=== PATIENT | female | born 1935 | race Caucasian/White ===

== ENCOUNTER 2017-09-06 05:46 | Inpatient (IN) | payer MEDICARE, BC ==
[2017-09-06 08:18] LABS: ADD MAN DIFF? NO
[2017-09-06 08:19] LABS: WHITE BLOOD COUNT 7.7 10^3/ul (4.8-10.8)
[2017-09-06 08:19] LABS: BASOPHILS % 0.4 % (0.0-2.0); EOSINOPHILS # 0.1 10^3/ul (0.0-0.5); EOSINOPHILS % 1.4 % (0.0-7.0); HEMATOCRIT 40.9 % (37.0-47.0); HEMOGLOBIN 13.8 g/dl (12.0-16.0); LYMPHOCYTES # 1.6 10^3/ul (0.8-2.9); LYMPHOCYTES % 21.1 % (15.0-51.0); MEAN CORPUSCULAR HEMOGLOBIN 32.6 pg (29.0-33.0); MEAN CORPUSCULAR HGB CONC 33.7 g/dl (32.0-37.0); MEAN CORPUSCULAR VOLUME 96.7 fl (82.0-101.0); MEAN PLATELET VOLUME 10.3 fl (7.4-10.4); MONOCYTE # 0.9 10^3/ul (0.3-0.9); MONOCYTES % 11.1 % (0.0-11.0); NEUTROPHIL # 5.1 10^3/ul (1.6-7.5); NEUTROPHILS % 65.7 % (39.0-77.0); PLATELET COUNT 201 10^3/UL (140-415); RED BLOOD COUNT 4.23 10^6/ul (4.20-5.40)
[2017-09-06] MEDS: SOD CHLORIDE 0.9% 1,000 ML IV ×3 (08:23→13:11)
[2017-09-06] MEDS: ONDANSETRON 4 MG INJ IV ×4 (08:23→21:30)
[2017-09-06] MEDS: morphine 4 MG/ML VIAL IV (08:24)
[2017-09-06 08:34] LABS: ADD UMIC YES; UR ASCORBIC ACID NEGATIVE (NEGATIVE); UR BILIRUBIN (Dip) NEGATIVE (NEGATIVE); UR BLOOD (Dip) NEGATIVE (NEGATIVE); UR CLARITY CLEAR (CLEAR); UR COLOR YELLOW (YELLOW); UR GLUCOSE (Dip) NEGATIVE (NEGATIVE); UR KETONES (Dip) NEGATIVE (NEGATIVE); UR LEUKOCYTE ESTERASE (Dip) 1+ Leu/ul (NEGATIVE); UR NITRITE (Dip) NEGATIVE (NEGATIVE); UR RBC 0 /HPF (0-5); UR SPECIFIC GRAVITY (Dip) 1.015 (1.003-1.030); UR TOTAL PROTEIN (Dip) NEGATIVE (NEGATIVE); UR UROBILINOGEN (Dip) NEGATIVE (NEGATIVE); UR WBC 12 /HPF (0-5)
[2017-09-06 08:38] LABS: ALANINE AMINOTRANSFERASE 69 IU/L (13-69); ALBUMIN 4.3 g/dl (3.3-4.9); ALBUMIN/GLOBULIN RATIO 1.38; ALKALINE PHOSPHATASE 76 IU/L (42-121); ANION GAP 13 (8-16); ASPARTATE AMINO TRANSFERASE 48 IU/L (15-46); BILIRUBIN,INDIRECT 0.5 mg/dl (0-1.1); BILIRUBIN,TOTAL 0.5 mg/dl (0.2-1.3); BLOOD UREA NITROGEN 14 mg/dl (7-20); CALCIUM 9.3 mg/dl (8.4-10.2); CARBON DIOXIDE 29 mmol/L (21-31); CHLORIDE 107 mmol/L (97-110); CREATININE 0.68 mg/dl (0.44-1.00); GLUCOSE 99 mg/dl (70-220); LIPASE 107 U/L (23-300); POTASSIUM 4.5 mmol/L (3.5-5.1); SODIUM 144 mmol/L (135-144); TOTAL PROTEIN 7.4 g/dl (6.1-8.1)
[2017-09-06 08:50] LABS: TROPONIN-I < 0.010 ng/ml (0.000-0.120)
[2017-09-06] MEDS: LEVOFLOXACIN 750MG/D5W (PMX) 150 ML IVPB (10:40)
[2017-09-06] MEDS: HYDROmorphONE 0.5 MG/0.5 ML SYG IV (11:29)
[2017-09-06] MEDS: metroNIDAZOLE 500 MG/NS (PMX) 100 ML IVPB ×2 (12:01→20:19)
[2017-09-06] MEDS ORDERED: BISACODYL 10 MG SUPP PR (13:30)
[2017-09-06] MEDS ORDERED: NACL 0.9% 3 ML SYG IV (13:30)
[2017-09-06] MEDS ORDERED: ACETAMINOPHEN 650 MG SUPP PR (13:30)
[2017-09-06] MEDS ORDERED: MAGNESIUM HYDROXIDE 30ML CUP PO (13:30)
[2017-09-06] MEDS ORDERED: HYDROCODONE/APAP (5/325) TAB PO (13:30)
[2017-09-06] MEDS ORDERED: ACETAMINOPHEN 325 MG TAB PO (13:30)
[2017-09-06] MEDS ORDERED: DOCUSATE SODIUM 100 MG CAP PO (13:30)
[2017-09-07] MEDS: SOD CHLORIDE 0.9% 1,000 ML IV ×2 (00:16→09:11)
[2017-09-07] MEDS: morphine 2 MG INJ IV (00:35)
[2017-09-07] MEDS: PANTOPRAZOLE 40 MG INJ IV (05:21)
[2017-09-07] MEDS: metroNIDAZOLE 500 MG/NS (PMX) 100 ML IVPB (05:22)
[2017-09-07 06:01] LABS: ADD MAN DIFF? NO
[2017-09-07 06:07] LABS: WHITE BLOOD COUNT 8.7 10^3/ul (4.8-10.8)
[2017-09-07 06:07] LABS: BASOPHILS % 0.2 % (0.0-2.0); HEMATOCRIT 36.5 % (37.0-47.0); HEMOGLOBIN 12.4 g/dl (12.0-16.0); LYMPHOCYTES # 1.5 10^3/ul (0.8-2.9); LYMPHOCYTES % 17.2 % (15.0-51.0); MEAN CORPUSCULAR HEMOGLOBIN 32.4 pg (29.0-33.0); MEAN CORPUSCULAR VOLUME 95.3 fl (82.0-101.0); MONOCYTE # 0.6 10^3/ul (0.3-0.9); MONOCYTES % 6.4 % (0.0-11.0); NEUTROPHIL # 6.6 10^3/ul (1.6-7.5); NEUTROPHILS % 75.9 % (39.0-77.0); PLATELET COUNT 193 10^3/UL (140-415); RED BLOOD COUNT 3.83 10^6/ul (4.20-5.40); RED CELL DISTRIBUTION WIDTH 12.8 % (11.5-14.5)
[2017-09-07 06:53] LABS: ALANINE AMINOTRANSFERASE 63 IU/L (13-69); ALBUMIN 3.5 g/dl (3.3-4.9); ALBUMIN/GLOBULIN RATIO 1.29; ALKALINE PHOSPHATASE 73 IU/L (42-121); ANION GAP 10 (8-16); ASPARTATE AMINO TRANSFERASE 34 IU/L (15-46); BILIRUBIN,INDIRECT 0.4 mg/dl (0-1.1); BILIRUBIN,TOTAL 0.4 mg/dl (0.2-1.3); BLOOD UREA NITROGEN 9 mg/dl (7-20); CALCIUM 8.9 mg/dl (8.4-10.2); CARBON DIOXIDE 23 mmol/L (21-31); CHLORIDE 110 mmol/L (97-110); CHOL/HDL RATIO 3.3 RATIO; CHOLESTEROL 133 mg/dl (100-200); CREATININE 0.64 mg/dl (0.44-1.00); GLUCOSE 113 mg/dl (70-220); HDL CHOLESTEROL 40 mg/dl (33-92); LDL CHOLESTEROL,CALCULATED 77 mg/dl; MAGNESIUM 1.8 mg/dl (1.7-2.5); PHOSPHORUS 3.4 mg/dl (2.5-4.9); SODIUM 139 mmol/L (135-144); TOTAL PROTEIN 6.2 g/dl (6.1-8.1); TRIGLYCERIDES 81 mg/dl (0-149)
[2017-09-07 07:11] LABS: T4 (THYROXINE) 7.9 ug/dl (5.5-11.0)
[2017-09-07 07:12] LABS: FREE THYROXINE INDEX (Calc) 2.32 ug/ml (0.65-3.89); T3 UPTAKE 29.4 % (23.5-40.5)
[2017-09-07 07:25] LABS: THYROID STIMULATING HORMONE 0.403 MIU/L (0.465-4.680)
[2017-09-07] MEDS: CIPROFLOXACIN 400MG/D5W 200 ML IVPB (09:55)
[2017-09-07] MEDS: DIPHENHYDRAMINE 25 MG CAP PO (12:45)
[2017-09-07] MEDS: metroNIDAZOLE 500 MG TAB PO ×2 (15:04→22:32)
[2017-09-07] MEDS: HYDROCODONE/APAP (5/325) TAB PO (15:05)
[2017-09-07] MEDS: CIPROFLOXACIN 500 MG TAB PO (18:27)
[2017-09-07] MEDS: DIPHENHYDRAMINE 50 MG CAP PO (18:27)
[2017-09-07] MEDS ORDERED: morphine LIQ (10 MG/5 ML) CUP PO (23:30)
[2017-09-08] MEDS: CIPROFLOXACIN 500 MG TAB PO (06:11)
[2017-09-08] MEDS: metroNIDAZOLE 500 MG TAB PO (06:11)
[2017-09-08 06:17] LABS: ADD MAN DIFF? NO
[2017-09-08 06:21] LABS: BASOPHILS % 0.7 % (0.0-2.0); EOSINOPHILS # 0.1 10^3/ul (0.0-0.5); EOSINOPHILS % 2.1 % (0.0-7.0); HEMATOCRIT 36.5 % (37.0-47.0); HEMOGLOBIN 12.5 g/dl (12.0-16.0); LYMPHOCYTES # 2.1 10^3/ul (0.8-2.9); LYMPHOCYTES % 34.9 % (15.0-51.0); MEAN CORPUSCULAR HEMOGLOBIN 32.9 pg (29.0-33.0); MEAN CORPUSCULAR HGB CONC 34.2 g/dl (32.0-37.0); MEAN CORPUSCULAR VOLUME 96.1 fl (82.0-101.0); MEAN PLATELET VOLUME 10.5 fl (7.4-10.4); MONOCYTE # 0.6 10^3/ul (0.3-0.9); MONOCYTES % 9.8 % (0.0-11.0); NEUTROPHIL # 3.2 10^3/ul (1.6-7.5); NEUTROPHILS % 52.2 % (39.0-77.0); PLATELET COUNT 200 10^3/UL (140-415)
[2017-09-08 06:21] LABS: WHITE BLOOD COUNT 6.1 10^3/ul (4.8-10.8)
[2017-09-08 06:45] LABS: ALANINE AMINOTRANSFERASE 59 IU/L (13-69); ALBUMIN 3.7 g/dl (3.3-4.9); ALBUMIN/GLOBULIN RATIO 1.27; ALKALINE PHOSPHATASE 65 IU/L (42-121); ANION GAP 8 (8-16); ASPARTATE AMINO TRANSFERASE 46 IU/L (15-46); BILIRUBIN,INDIRECT 0.4 mg/dl (0-1.1); BILIRUBIN,TOTAL 0.4 mg/dl (0.2-1.3); BLOOD UREA NITROGEN 15 mg/dl (7-20); CALCIUM 8.8 mg/dl (8.4-10.2); CARBON DIOXIDE 26 mmol/L (21-31); CHLORIDE 111 mmol/L (97-110); CREATININE 0.73 mg/dl (0.44-1.00); GLUCOSE 104 mg/dl (70-220); MAGNESIUM 2.1 mg/dl (1.7-2.5); PHOSPHORUS 2.6 mg/dl (2.5-4.9); POTASSIUM 3.9 mmol/L (3.5-5.1); SODIUM 141 mmol/L (135-144); TOTAL PROTEIN 6.6 g/dl (6.1-8.1)
[2017-09-08] MEDS: HYDROCODONE/APAP (5/325) TAB PO (11:21)
== END 2017-09-08 14:50 | disposition home or self-care (01) | DRG 392 ==
LOC: E/R 05:46 → MS2 10:50
DX: K57.32 Diverticulitis of large intestine without perforation or abscess without bleeding (principal); N39.0 Urinary tract infection, site not specified; N81.4 Uterovaginal prolapse, unspecified
CPT/HCPCS: 36415; 74176; 80053; 80061; 81001; 83036; 83690; 83735; 84100; 84436; 84443; 84479; 84484; 85025; 87040; 87086; 93005; 93306; 96361; 96374; 96375; 99285-25

== ENCOUNTER 2018-01-15 21:15 | Emergency (ER) | payer MEDICARE, BC ==
[2018-01-15] MEDS: ONDANSETRON 4 MG INJ IV (21:57)
[2018-01-15] MEDS: morphine 4 MG/ML VIAL IV (21:59)
[2018-01-15] MEDS: SOD CHLORIDE 0.9% 1,000 ML IV (22:00)
[2018-01-15 22:10] LABS: ADD UMIC YES; UR ASCORBIC ACID NEGATIVE (NEGATIVE); UR BILIRUBIN (Dip) NEGATIVE (NEGATIVE); UR BLOOD (Dip) NEGATIVE (NEGATIVE); UR CLARITY CLEAR (CLEAR); UR COLOR YELLOW (YELLOW); UR GLUCOSE (Dip) NEGATIVE (NEGATIVE); UR KETONES (Dip) NEGATIVE (NEGATIVE); UR LEUKOCYTE ESTERASE (Dip) 1+ Leu/ul (NEGATIVE); UR NITRITE (Dip) NEGATIVE (NEGATIVE); UR RBC 1 /HPF (0-5); UR SPECIFIC GRAVITY (Dip) 1.012 (1.003-1.030); UR SQUAMOUS EPITHELIAL CELL FEW /HPF (FEW); UR TOTAL PROTEIN (Dip) NEGATIVE (NEGATIVE); UR TRANSITIONAL EPI CELL FEW /HPF (NONE SEEN); UR UROBILINOGEN (Dip) NEGATIVE (NEGATIVE); UR WBC 6 /HPF (0-5)
[2018-01-15 22:12] LABS: ADD MAN DIFF? NO
[2018-01-15 22:13] LABS: ABNORMAL IP MESSAGE 1; BASOPHILS % 0.5 % (0.0-2.0); EOSINOPHILS # 0.1 10^3/ul (0.0-0.5); EOSINOPHILS % 2.4 % (0.0-7.0); HEMATOCRIT 42.9 % (37.0-47.0); HEMOGLOBIN 14.6 g/dl (12.0-16.0); LYMPHOCYTES # 0.4 10^3/ul (0.8-2.9); LYMPHOCYTES % 9.4 % (15.0-51.0); MEAN CORPUSCULAR HEMOGLOBIN 32.2 pg (29.0-33.0); MEAN CORPUSCULAR VOLUME 94.7 fl (82.0-101.0); MEAN PLATELET VOLUME 10.4 fl (7.4-10.4); MONOCYTE # 0.3 10^3/ul (0.3-0.9); MONOCYTES % 7.7 % (0.0-11.0); NEUTROPHIL # 3.3 10^3/ul (1.6-7.5); NEUTROPHILS % 79.5 % (39.0-77.0); PLATELET COUNT 141 10^3/UL (140-415); RED BLOOD COUNT 4.53 10^6/ul (4.20-5.40); RED CELL DISTRIBUTION WIDTH 13.2 % (11.5-14.5)
[2018-01-15 22:13] LABS: WHITE BLOOD COUNT 4.1 10^3/ul (4.8-10.8)
[2018-01-15 22:22] LABS: POSITIVE DIFF @See below
[2018-01-15 22:33] LABS: LACTIC ACID 1.3 mmol/L (0.5-2.0)
[2018-01-15 22:34] LABS: ALANINE AMINOTRANSFERASE 60 IU/L (13-69); ALBUMIN 4.2 g/dl (3.3-4.9); ALBUMIN/GLOBULIN RATIO 1.23; ALKALINE PHOSPHATASE 73 IU/L (42-121); AMYLASE 74 U/L (11-123); ANION GAP 11 (5-13); ASPARTATE AMINO TRANSFERASE 52 IU/L (15-46); BILIRUBIN,INDIRECT 0.8 mg/dl (0-1.1); BILIRUBIN,TOTAL 0.8 mg/dl (0.2-1.3); BLOOD UREA NITROGEN 17 mg/dl (7-20); CALCIUM 9.3 mg/dl (8.4-10.2); CARBON DIOXIDE 25 mmol/L (21-31); CHLORIDE 103 mmol/L (97-110); CREATININE 0.65 mg/dl (0.44-1.00); GLUCOSE 124 mg/dl (70-220); INR 0.93; LIPASE 101 U/L (23-300); POTASSIUM 4.3 mmol/L (3.5-5.1); PROTIME 12.6 Sec (11.9-14.9); SODIUM 139 mmol/L (135-144); TOTAL PROTEIN 7.6 g/dl (6.1-8.1)
[2018-01-15 22:35] LABS: PARTIAL THROMBOPLASTIN TIME 30.8 Sec (23.0-35.0)
[2018-01-15 22:45] LABS: TROPONIN-I < 0.012 ng/ml (0.000-0.120)
[2018-01-15] MEDS: CEFTRIAXONE 1 GM/50 ML (PMX) 50 ML IVPB (23:57)
[2018-01-15] MEDS: METHYLPREDNISOLONE 125 MG INJ IV (23:57)
[2018-01-16] MEDS ORDERED: DIPHENHYDRAMINE 50 MG INJ IV
[2018-01-16] MEDS: DIPHENHYDRAMINE 50 MG INJ IV (00:03)
[2018-01-16] MEDS: PANTOPRAZOLE 40 MG INJ IV (00:11)
[2018-01-16] MEDS: KETOROLAC 30 MG INJ IV (00:15)
== END 2018-01-16 01:24 | disposition home or self-care (01) ==
LOC: FTE 01-16 01:24
DX: N39.0 Urinary tract infection, site not specified (principal); J01.90 Acute sinusitis, unspecified; R10.9 Unspecified abdominal pain
CPT/HCPCS: 36415; 74176; 80053; 81001; 82150; 83605; 83690; 84484; 85025; 85610; 85730; 87040; 87086; 96374; 96375; 99285-25

== ENCOUNTER 2018-04-04 13:30 | Inpatient (IN) | payer MEDICARE, BC ==
[2018-04-04 14:23] LABS: ADD MAN DIFF? NO
[2018-04-04] MEDS: KETOROLAC 30 MG INJ IV (14:35)
[2018-04-04] MEDS: SODIUM CHLORIDE 0.9% 1L BAG IV* (14:35)
[2018-04-04 14:41] LABS: BASOPHILS % 0.2 % (0.0-2.0); HEMATOCRIT 42.4 % (37.0-47.0); HEMOGLOBIN 13.9 g/dl (12.0-16.0); LYMPHOCYTES # 0.8 10^3/ul (0.8-2.9); MEAN CORPUSCULAR HGB CONC 32.8 g/dl (32.0-37.0); MEAN CORPUSCULAR VOLUME 97.5 fl (82.0-101.0); MONOCYTE # 0.5 10^3/ul (0.3-0.9); MONOCYTES % 12.6 % (0.0-11.0); NEUTROPHIL # 2.8 10^3/ul (1.6-7.5); PLATELET COUNT 173 10^3/UL (140-415); RED BLOOD COUNT 4.35 10^6/ul (4.20-5.40); RED CELL DISTRIBUTION WIDTH 13.6 % (11.5-14.5)
[2018-04-04 14:41] LABS: WHITE BLOOD COUNT 4.2 10^3/ul (4.8-10.8)
[2018-04-04 14:58] LABS: ALANINE AMINOTRANSFERASE 59 IU/L (13-69); ALBUMIN 4.3 g/dl (3.3-4.9); ALKALINE PHOSPHATASE 67 IU/L (42-121); ANION GAP 11 (5-13); ASPARTATE AMINO TRANSFERASE 66 IU/L (15-46); BILIRUBIN,INDIRECT 0.2 mg/dl (0-1.1); BILIRUBIN,TOTAL 0.2 mg/dl (0.2-1.3); BLOOD UREA NITROGEN 13 mg/dl (7-20); CALCIUM 9.6 mg/dl (8.4-10.2); CARBON DIOXIDE 24 mmol/L (21-31); CHLORIDE 101 mmol/L (97-110); CREATININE 0.65 mg/dl (0.44-1.00); GLUCOSE 127 mg/dl (70-220); POTASSIUM 4.3 mmol/L (3.5-5.1); SODIUM 136 mmol/L (135-144); TOTAL PROTEIN 7.6 g/dl (6.1-8.1)
[2018-04-04 15:10] LABS: TROPONIN-I < 0.012 ng/ml (0.000-0.120)
[2018-04-04 15:16] LABS: INR 0.92; PROTIME 12.5 Sec (11.9-14.9)
[2018-04-04 15:17] LABS: PARTIAL THROMBOPLASTIN TIME 29.7 Sec (23.0-35.0)
[2018-04-04 15:54] LABS: ADD UMIC YES; UR ASCORBIC ACID NEGATIVE (NEGATIVE); UR BILIRUBIN (Dip) NEGATIVE (NEGATIVE); UR BLOOD (Dip) NEGATIVE (NEGATIVE); UR CLARITY CLEAR (CLEAR); UR COLOR STRAW (YELLOW); UR GLUCOSE (Dip) NEGATIVE (NEGATIVE); UR KETONES (Dip) NEGATIVE (NEGATIVE); UR LEUKOCYTE ESTERASE (Dip) TRACE Leu/ul (NEGATIVE); UR NITRITE (Dip) NEGATIVE (NEGATIVE); UR RBC 0 /HPF (0-5); UR SPECIFIC GRAVITY (Dip) 1.005 (1.003-1.030); UR TOTAL PROTEIN (Dip) NEGATIVE (NEGATIVE); UR UROBILINOGEN (Dip) NEGATIVE (NEGATIVE); UR WBC 1 /HPF (0-5)
[2018-04-04] MEDS: LEVOFLOXACIN 750MG/D5W (PMX) 150 ML IVPB (16:03)
[2018-04-04] MEDS: ALBUTEROL 0.083% (NEB) 2.5 MG/3 ML AMP NEB (16:25)
[2018-04-04] MEDS: IPRATROPIUM (NEB) 0.5 MG/2.5 ML AMP NEB (16:25)
[2018-04-04] MEDS: morphine 4 MG/ML VIAL IV (16:52)
[2018-04-04] MEDS: ONDANSETRON 4 MG INJ IV ×2 (16:52→22:59)
[2018-04-04] MEDS: ACETAMINOPHEN 500 MG TAB PO (16:54)
[2018-04-04] MEDS ORDERED: ONDANSETRON 4 MG INJ IV (17:00)
[2018-04-04] MEDS ORDERED: ACETAMINOPHEN 325 MG TAB PO (17:00)
[2018-04-04] MEDS: VANCOMYCIN 1 GM (PMX) 250 ML IVPB (18:05)
[2018-04-04] MEDS ORDERED: GUAIFENESIN/CODEINE 5ML CUP PO (20:00)
[2018-04-04] MEDS ORDERED: NACL 0.9% 3 ML SYG IV (20:00)
[2018-04-04] MEDS ORDERED: HYDROCODONE/APAP (5/325) TAB PO (20:00)
[2018-04-04 21:01] LABS: LACTIC ACID 1.7 mmol/L (0.5-2.0)
[2018-04-04] MEDS: FAMOTIDINE 20 MG TAB PO (23:00)
[2018-04-04] MEDS: SOD CHLORIDE 0.9% 1,000 ML IV (23:00)
[2018-04-04] MEDS: LIDOCAINE/MYLANTA 40 ML BTL PO (23:59)
[2018-04-05] MEDS: LIDOCAINE/MYLANTA 40 ML BTL PO (00:09)
[2018-04-05 06:46] LABS: ADD MAN DIFF? NO
[2018-04-05 06:55] LABS: BASOPHILS % 0.3 % (0.0-2.0); EOSINOPHILS # 0.1 10^3/ul (0.0-0.5); EOSINOPHILS % 1.6 % (0.0-7.0); HEMATOCRIT 37.7 % (37.0-47.0); HEMOGLOBIN 12.3 g/dl (12.0-16.0); LYMPHOCYTES # 1.3 10^3/ul (0.8-2.9); LYMPHOCYTES % 42.5 % (15.0-51.0); MEAN CORPUSCULAR HEMOGLOBIN 32.4 pg (29.0-33.0); MEAN CORPUSCULAR HGB CONC 32.6 g/dl (32.0-37.0); MEAN CORPUSCULAR VOLUME 99.2 fl (82.0-101.0); MEAN PLATELET VOLUME 10.2 fl (7.4-10.4); MONOCYTE # 0.5 10^3/ul (0.3-0.9); NEUTROPHIL # 1.3 10^3/ul (1.6-7.5); NEUTROPHILS % 40.6 % (39.0-77.0); PLATELET COUNT 162 10^3/UL (140-415); RED CELL DISTRIBUTION WIDTH 14.1 % (11.5-14.5)
[2018-04-05 06:55] LABS: WHITE BLOOD COUNT 3.1 10^3/ul (4.8-10.8)
[2018-04-05 07:05] LABS: HEMOGLOBIN A1C 5.9 % (0-5.9)
[2018-04-05 07:29] LABS: ALANINE AMINOTRANSFERASE 47 IU/L (13-69); ALBUMIN 3.7 g/dl (3.3-4.9); ALBUMIN/GLOBULIN RATIO 1.23; ALKALINE PHOSPHATASE 51 IU/L (42-121); ANION GAP 12 (5-13); ASPARTATE AMINO TRANSFERASE 42 IU/L (15-46); BILIRUBIN,INDIRECT 0.1 mg/dl (0-1.1); BILIRUBIN,TOTAL 0.1 mg/dl (0.2-1.3); BLOOD UREA NITROGEN 11 mg/dl (7-20); CALCIUM 8.8 mg/dl (8.4-10.2); CARBON DIOXIDE 25 mmol/L (21-31); CHLORIDE 102 mmol/L (97-110); CHOL/HDL RATIO 4.1 RATIO; CHOLESTEROL 151 mg/dl (100-200); CREATININE 0.73 mg/dl (0.44-1.00); GLUCOSE 107 mg/dl (70-220); HDL CHOLESTEROL 36 mg/dl (33-92); LDL CHOLESTEROL,CALCULATED 93 mg/dl; POTASSIUM 4.1 mmol/L (3.5-5.1); SODIUM 139 mmol/L (135-144); TOTAL PROTEIN 6.7 g/dl (6.1-8.1); TRIGLYCERIDES 108 mg/dl (0-149)
[2018-04-05] MEDS: FAMOTIDINE 20 MG TAB PO ×2 (08:38→20:13)
[2018-04-05] MEDS: ACETAMINOPHEN 325 MG TAB PO (17:36)
[2018-04-05] MEDS ORDERED: ACETAMINOPHEN 500 MG TAB PO (18:00)
[2018-04-05] MEDS: MAGNESIUM HYDROXIDE 30ML CUP PO (20:13)
[2018-04-05] MEDS: ZOLPIDEM 5 MG TAB PO (22:03)
[2018-04-06] MEDS: MAGNESIUM HYDROXIDE 30ML CUP PO (08:17)
[2018-04-06] MEDS: FAMOTIDINE 20 MG TAB PO (08:17)
[2018-04-06] MEDS ORDERED: LEVOFLOXACIN 750MG/D5W (PMX) 150 ML IVPB (17:00)
== END 2018-04-06 14:29 | disposition home or self-care (01) | DRG 195 ==
LOC: E/R 13:30 → TEL 16:54
DX: J18.9 Pneumonia, unspecified organism (principal); I10 Essential (primary) hypertension; Z88.0 Allergy status to penicillin
CPT/HCPCS: 36415; 70450; 71045; 80053; 80061; 81001; 83036; 83605; 83735; 84484; 85025; 85610; 85730; 87040; 87086; 87400; 93005; 94664; 96374; 96375; 99291-25